=== PATIENT | male | born 1990 | race Caucasian/White ===

== ENCOUNTER → 2021-06-30 | Emergency (ER) | payer SELFPAY ==
[~2021-06-30] VITALS: Ht 165.1 cm; Wt 68.2 kg
[2021-06-30 15:36] VITALS: BP 135/83
== END | disposition left against medical advice (07) ==
LOC: ER 15:25
DX: H57.12 Ocular pain, left eye (principal); H53.8 Other visual disturbances; F12.90 Cannabis use, unspecified, uncomplicated
CPT/HCPCS: 99281

== ENCOUNTER 2021-07-02 06:47 | Emergency (ER) | payer SELFPAY | END 2021-07-02 08:46 | disposition left against medical advice (07) | LOC: ER 06:47 | DX: H57.10 Ocular pain, unspecified eye (principal); Z53.21 Procedure and treatment not carried out due to patient leaving prior to being seen by health care provider ==

== ENCOUNTER 2023-06-14 10:22 | Emergency (ER) | payer MEDICAID ==
[~2023-06-14] VITALS: Ht 167.6 cm; Wt 73.4 kg
[2023-06-14 11:01] VITALS: BP 120/75; PULSE 78; RESP 16; O2SAT 96
[2023-06-14] MEDS ORDERED: CEPH250T PO (11:45)
== END 2023-06-14 12:00 | disposition home or self-care (01) ==
LOC: ER 10:22
DX: J34.89 Other specified disorders of nose and nasal sinuses (principal); F12.90 Cannabis use, unspecified, uncomplicated
CPT/HCPCS: 99283

== ENCOUNTER 2023-06-15 14:19 | Emergency (ER) | payer MEDICAID ==
[~2023-06-15] VITALS: Ht 167.6 cm; Wt 70.8 kg
[~2023-06-15 14:19] MED LIST: CEPH250T PO
[2023-06-15 15:02] VITALS: BP 119/78; PULSE 78; RESP 15; TEMP 98.4; O2SAT 97
== END 2023-06-15 22:06 | disposition left against medical advice (07) ==
LOC: ER 14:19
DX: R60.9 Edema, unspecified (principal); Z53.21 Procedure and treatment not carried out due to patient leaving prior to being seen by health care provider; Y08.89XA Assault by other specified means, initial encounter; Y93.89 Activity, other specified; Y92.89 Other specified places as the place of occurrence of the external cause; Y99.8 Other external cause status
CPT/HCPCS: 99281

== ENCOUNTER 2023-07-03 08:49 | Emergency (ER) | payer MEDICAID ==
[~2023-07-03] VITALS: Ht 165.1 cm; Wt 72.7 kg
[2023-07-03 08:53] VITALS: BP 114/60; PULSE 101; RESP 18; TEMP 100.7; O2SAT 99
[2023-07-03 09:22] LABS: STREP A SCREEN POSITIVE (Neg)
[2023-07-03] MEDS ORDERED: dexamethasone sod phosphate 10mg/ml inj IM STA (10:34)
[2023-07-03] MEDS ORDERED: AMOX-117 PO (10:40)
== END 2023-07-03 11:08 | disposition home or self-care (01) ==
LOC: ER 08:49
DX: J02.0 Streptococcal pharyngitis (principal); Z20.822 Contact with and (suspected) exposure to COVID-19
CPT/HCPCS: 36415; 87502; 87503; 87811; 87880; 96372; 99283; J1100